=== PATIENT | female | born 1980 | race Caucasian/White ===

== ENCOUNTER 2019-09-09 10:50 | Outpatient (CLI) | payer OTHER ==
--- NOTE | 2019-09-09 11:59 | RAD ---
RIGHT HIP 2 VIEWS: Date: 09/09/19 HISTORY: Hip pain. FINDINGS: Femoral head shows normal contour. Mild medial joint narrowing. Minimal degenerative change. No fract ure or acute abnormality. IMPRESSION: No acute findings. Minimal degenerative change. POS: OFF
== END 2019-09-09 10:51 | disposition home or self-care (01) ==
LOC: SCSRAD 10:50
PROVIDERS: ATTEND Family Medicine
DX: M25.551 Pain in right hip (principal); M16.11 Unilateral primary osteoarthritis, right hip